=== PATIENT | female | born 1950 | race Caucasian/White ===

== ENCOUNTER 2023-07-12 07:13 | Emergency (ER) | payer MEDICARE, OTHER ==
[~2023-07-12] VITALS: Ht 167.6 cm; Wt 60.0 kg
[2023-07-12 07:22] VITALS: BP 123/64
[2023-07-12] MEDS: LIDOCAINE 1% (LOCAL ANESTH.) PF 5ml SDV ID ONE (08:05)
[2023-07-12] MEDS: ALBUTEROL SULF 2.5 MG/0.5ML(0.5%) NEB SOLN HHN ONE (08:16)
[2023-07-12] MEDS: IPRATROPIUM BROM 0.5 MG/2.5ML INH SOL HHN ONE (08:16)
[2023-07-12] MEDS: NEOMYCIN-BACITRACIN-POLYM UNITDOSE PKG TOP OINT TOP ONE (08:30)
[2023-07-12 08:36] VITALS: PULSE 78; RESP 14; O2SAT 94
== END 2023-07-12 10:26 | disposition home or self-care (01) ==
LOC: EDBD 07:13 → ER 07:13
DX: S01.112A Laceration without foreign body of left eyelid and periocular area, initial encounter (principal); J44.9 Chronic obstructive pulmonary disease, unspecified; Z88.6 Allergy status to analgesic agent; W18.09XA Striking against other object with subsequent fall, initial encounter; Y93.89 Activity, other specified; Y92.89 Other specified places as the place of occurrence of the external cause; Y99.8 Other external cause status
CPT/HCPCS: 12013; 94640; 99283; J7644

== ENCOUNTER 2024-01-15 01:09 | Inpatient (IN) | payer MEDICARE, OTHER ==
[~2024-01-15] VITALS: Ht 165.1 cm; Wt 50.2 kg
[~2024-01-15 01:09] MED LIST: ASCO500T11 PO; DOCU-94 PO; FOLI-119 PO; GABA-1251 PO
[2024-01-15 03:46] LABS: Basophils # (auto) 0.1 10 ^3/uL (0-0.2); Basophils % (auto) 0.9 % (0.0-2.0); Eosinophils # (auto) 0.1 10 ^3/uL (0-0.8); Eosinophils % (auto) 2.4 % (0.0-7.0); Hematocrit 37.6 % (36.0-46.0); Hemoglobin 12.4 g/dL (12.2-16.2); Lymphocytes # (auto) 0.6 10 ^3/uL (0.4-5.4); Mean Corpuscular Hemoglobin 31.2 pg (28.0-32.0); Mean Corpuscular Hgb Conc. 32.9 g/dL (32.0-36.0); Mean Corpuscular Volume 94.9 fL (80.0-100.0); Monocytes # (auto) 0.5 10 ^3/uL (0-1.3); Monocytes % (auto) 7.7 % (0.0-12.0); Neutrophils # (auto) 4.7 10 ^3/uL (1.6-8.6); Platelet Count (auto) 198 10^3/uL (140-450); Red Blood Cells 3.96 10^6/uL (4.0-5.20); White Blood Cell 5.9 10^3/uL (4.4-10.8)
[2024-01-15 03:55] LABS: Chloride 113 mmol/L (98-107); Potassium 4.2 mmol/L (3.5-5.1); Sodium 145 mmol/L (136-145)
[2024-01-15 03:56] LABS: Anion Gap 1 (5-15); Carbon Dioxide 31 mmol/L (20-31)
[2024-01-15 03:57] LABS: Calcium 9.6 mg/dL (8.7-10.4)
[2024-01-15 04:01] LABS: BUN/Creatinine Ratio 18.3 (10.0-20.0); Blood Urea Nitrogen 15 mg/dL (9-23); Glucose 120 mg/dL (74-106)
[2024-01-15 07:30] VITALS: PULSE 104; RESP 28; O2SAT 93
[2024-01-15] MEDS: methylPREDNISolone SOD SUCC 125 MG/2 ML VL IV ONE (08:17)
[2024-01-15] MEDS: ALBUTEROL SULF 2.5 MG/0.5ML(0.5%) NEB SOLN NEB ONE (08:18)
[2024-01-15] MEDS ORDERED: ONDANSETRON HCL 4 MG/2 ML VIAL IV PRN (09:00)
[2024-01-15] MEDS: MORPHINE SULFATE 4 MG/ML SYR/VIAL IV ONE (09:13)
[2024-01-15] MEDS: ONDANSETRON HCL 4 MG/2 ML VIAL IV ONE (09:13)
[2024-01-15 09:33] VITALS: BP 173/80; PULSE 106; RESP 22; TEMP 97.9; O2SAT 94
[2024-01-15] MEDS ORDERED: SERT-289 PO (09:56)
[2024-01-15] MEDS ORDERED: MEMA1TAB3 PO (09:56)
[2024-01-15] MEDS ORDERED: RISP1TAB63 PO (09:56)
[2024-01-15] MEDS ORDERED: THEO1TAB6 PO (09:56)
[2024-01-15] MEDS ORDERED: SERTRALINE HCL 50 MG TAB PO SCH (10:00)
[2024-01-15] MEDS: risperiDONE 1 MG TAB PO SCH (10:49)
[2024-01-15] MEDS: MEMANTINE HCL 5 MG TAB PO SCH (10:50)
[2024-01-15 11:39] VITALS: PULSE 81; RESP 18; O2SAT 96
[2024-01-15] MEDS: ALBUTEROL SULF 2.5 MG/0.5ML(0.5%) NEB SOLN NEB SCH (11:39)
[2024-01-15] MEDS: IPRATROPIUM BROM 0.5 MG/2.5ML INH SOL NEB SCH (11:39)
[2024-01-15 11:43] VITALS: PULSE 77; RESP 18; O2SAT 96
[2024-01-15] MEDS: SERTRALINE HCL 50 MG TAB PO SCH (11:47)
[2024-01-15] MEDS: LORazepam 2MG/ML-1ML VIAL IV ONE (11:47)
[2024-01-15] MEDS: MORPHINE SULFATE INJ 2 MG/ml SYRG IV PRN (12:01)
[2024-01-15 15:45] LABS: Urine Bacteria FEW /hpf (None Seen); Urine Blood Negative /uL (Negative); Urine Clarity Clear (Clear); Urine Color Yellow (Yellow); Urine Mucus FEW (None Seen); Urine Protein, UAD Negative (Negative); Urine Specific Gravity 1.022 (1.001-1.035); Urine Urobilinogen Normal (Negative); Urine WBC 1 /hpf (0 - 5); Urine pH 6.5 (5.0-9.0)
[2024-01-15 19:09] VITALS: PULSE 83; RESP 20; O2SAT 96
[2024-01-15 19:15] VITALS: PULSE 72; RESP 20; O2SAT 99
[2024-01-15] MEDS: HYDROcodone-ACET 5/325MG TAB PO PRN (19:28)
[2024-01-15] MEDS: LORazepam 2MG/ML-1ML VIAL IV PRN (22:38)
[2024-01-16] VITALS (16 sets, daily range): BP systolic 113–132; BP diastolic 55–73; PULSE 63–113; RESP 16–18; TEMP 97.4–98; O2SAT 94–100
[2024-01-16] MEDS: HALOPERIDOL LACTATE 5 MG/ML INJ VIAL IM ONE (04:18)
[2024-01-16 04:35] LABS: Basophils # (auto) 0.1 10 ^3/uL (0-0.2); Basophils % (auto) 0.8 % (0.0-2.0); Eosinophils # (auto) 0.1 10 ^3/uL (0-0.8); Eosinophils % (auto) 0.9 % (0.0-7.0); Hematocrit 36.5 % (36.0-46.0); Hemoglobin 12.1 g/dL (12.2-16.2); Lymphocytes # (auto) 1.3 10 ^3/uL (0.4-5.4); Lymphocytes % (auto) 19.4 % (10.0-50.0); Mean Corpuscular Hemoglobin 31.8 pg (28.0-32.0); Mean Corpuscular Hgb Conc. 33.2 g/dL (32.0-36.0); Mean Corpuscular Volume 95.6 fL (80.0-100.0); Monocytes # (auto) 0.8 10 ^3/uL (0-1.3); Monocytes % (auto) 12.2 % (0.0-12.0); Neutrophils # (auto) 4.4 10 ^3/uL (1.6-8.6); Neutrophils % (auto) 66.7 % (37.0-80.0); Platelet Count (auto) 190 10^3/uL (140-450); Red Blood Cells 3.82 10^6/uL (4.0-5.20); Red Cell Distribution Width 15.9 % (11.8-14.3); White Blood Cell 6.6 10^3/uL (4.4-10.8)
[2024-01-16 04:40] LABS: Chloride 109 mmol/L (98-107); Potassium 3.9 mmol/L (3.5-5.1); Sodium 143 mmol/L (136-145)
[2024-01-16 04:41] LABS: Anion Gap 3 (5-15); Calcium 9.6 mg/dL (8.7-10.4); Carbon Dioxide 31 mmol/L (20-31)
[2024-01-16 04:46] LABS: BUN/Creatinine Ratio 18.1 (10.0-20.0); Blood Urea Nitrogen 15 mg/dL (9-23); Glucose 88 mg/dL (74-106)
[2024-01-16] MEDS ORDERED: GABA-1308 PO (06:40)
[2024-01-16] MEDS: DOCUSATE SOD 100 MG CAP PO PRN (21:31)
[2024-01-17] VITALS (11 sets, daily range): BP systolic 108–155; BP diastolic 46–56; PULSE 54–69; RESP 16–18; TEMP 98.2–99.2; O2SAT 92–100
[2024-01-17 06:16] LABS: Basophils # (auto) 0.1 10 ^3/uL (0-0.2); Basophils % (auto) 0.9 % (0.0-2.0); Eosinophils # (auto) 0.2 10 ^3/uL (0-0.8); Eosinophils % (auto) 4.2 % (0.0-7.0); Hematocrit 35.1 % (36.0-46.0); Hemoglobin 11.8 g/dL (12.2-16.2); Lymphocytes % (auto) 17.2 % (10.0-50.0); Mean Corpuscular Hemoglobin 31.6 pg (28.0-32.0); Mean Corpuscular Hgb Conc. 33.7 g/dL (32.0-36.0); Mean Corpuscular Volume 93.8 fL (80.0-100.0); Monocytes # (auto) 0.5 10 ^3/uL (0-1.3); Monocytes % (auto) 8.5 % (0.0-12.0); Neutrophils # (auto) 3.9 10 ^3/uL (1.6-8.6); Neutrophils % (auto) 69.2 % (37.0-80.0); Platelet Count (auto) 179 10^3/uL (140-450); Red Blood Cells 3.74 10^6/uL (4.0-5.20); Red Cell Distribution Width 15.1 % (11.8-14.3); White Blood Cell 5.7 10^3/uL (4.4-10.8)
[2024-01-17 06:28] LABS: INR 1.03 (0.9-1.15); Partial Thromboplastin Time 25.8 SEC (24.5-34.5); Prothrombin Time 10.9 sec (9.3-11.8)
[2024-01-17 06:42] LABS: Alanine Aminotransferase 17 U/L (7-40); Albumin 3.5 g/dL (3.2-4.8); Alkaline Phosphatase 69 U/L (46-116); Anion Gap 4 (5-15); Aspartate Aminotransferase 21 U/L (13-40); BUN/Creatinine Ratio 23.5 (10.0-20.0); Bilirubin, Total 0.5 mg/dL (0.2-1.0); Blood Urea Nitrogen 16 mg/dL (9-23); Calcium 9.1 mg/dL (8.7-10.4); Carbon Dioxide 29 mmol/L (20-31); Chloride 109 mmol/L (98-107); Glucose 82 mg/dL (74-106); Potassium 3.8 mmol/L (3.5-5.1); Sodium 142 mmol/L (136-145); Total Protein 5.5 g/dL (5.7-8.2)
[2024-01-17 12:53] LABS: COVID19 ANTIGEN SOFIA FIA NEGATIVE (NEGATIVE)
== END 2024-01-17 17:14 | disposition home or self-care (01) | DRG 562 ==
LOC: ER 01:09 → EDBD 01:09 → OVERFLOW 08:50 → EAST 01-16 05:36
PROVIDERS: ADMIT Registered Nurse General Practice; ATTEND Internal Medicine
DX: S39.012A Strain of muscle, fascia and tendon of lower back, initial encounter (principal); J96.21 Acute and chronic respiratory failure with hypoxia; J44.1 Chronic obstructive pulmonary disease with (acute) exacerbation; G10 Huntington's disease; S00.93XA Contusion of unspecified part of head, initial encounter; F20.9 Schizophrenia, unspecified; F03.90 Unspecified dementia, unspecified severity, without behavioral disturbance, psychotic disturbance, mood disturbance, and anxiety; Z20.822 Contact with and (suspected) exposure to COVID-19; J43.9 Emphysema, unspecified; W07.XXXA Fall from chair, initial encounter; Z88.6 Allergy status to analgesic agent; Z88.1 Allergy status to other antibiotic agents; Z90.49 Acquired absence of other specified parts of digestive tract; Y93.89 Activity, other specified; Y92.89 Other specified places as the place of occurrence of the external cause; Y99.8 Other external cause status
CPT/HCPCS: 36415; 70450; 70486; 71045; 71250; 72128; 72131; 80048; 80053; 81001; 82962; 83605; 84484; 85025; 85610; 85730; 87081; 87426; 93005; 94640; G0378; J2405

== ENCOUNTER 2024-06-04 12:48 | Emergency (ER) | payer MEDICARE, OTHER ==
[~2024-06-04] VITALS: Ht 177.8 cm; Wt 60.3 kg
[~2024-06-04 12:48] MED LIST changes: +MEMA1TAB3 PO; +RISP1TAB63 PO; +SERT-289 PO; +THEO1TAB6 PO
--- NOTE | 2024-06-04 13:09 | ED.PDOC ---
History of Present Illness HPI Comments 74 year old female brought in by EMS presents to the ED with a chief complaint of fall onset today (06/04/24). Per EMS, patient is from [facility] he went to the bathroom when she slipped, fell forward and hit face on toilet bowl. Patient is currently experiencing neck and head pain, with a laceration noted on nose. Patient was placed on c-collar by EMS. PMHx anemia, COPD, Schizophrenia, Dementia. Denies LOC, chest pain, shortness of breath, nausea, vomiting, diarrhea, abdominal pain, dizziness, blurry vision. No other symptoms or modifying factors present at this time. Chief Complaint: Head Injury Time Seen by MD: 12:51 Primary Care Provider: unknown Reviewed Notes: Medications, Allergies Allergies: Coded Allergies: Celecoxib (Verified Allergy, Severe, 07/12/23) NSAIDs (Verified Allergy, Severe, 07/12/23) Home Meds Reported Medications Folic Acid (Folic Acid) 1 Mg Tab, 1 TAB PO DAILY for 30 Days, #30 01/16/24 Ascorbic Acid (VITAMIN C TABLET) 500 Mg Tb, 1 TAB PO BID for 31 Days, #62 01/16/24 Gabapentin (Gabapentin) 400 Mg Cap, 1 CAP PO TID for 31 Days, #93 01/16/24 Docusate Sodium (Colace) 100 Mg Cap, 1 CAP PO DAILY for 31 Days, #31 01/16/24 Theophylline (Theodur) 300 Mg Tb, 300 MG PO DAILY 01/15/24 Memantine Hydrochloride (Memantine HCl) 5 Mg Tab, 5 MG PO BID 01/15/24 Risperidone (Risperidone) 1 Mg Tab, 1 MG PO DAILY 01/15/24 Sertraline HCl (Sertraline HCl) 50 Mg Tab, 50 TAB PO DAILY 01/15/24 Information Source: Patient, Emergency Med Personnel Mode of Arrival: EMS Severity: Moderate Timing: Hours Duration: Since onset Prehospital treatment: [facility] Past Medical History PAST MEDICAL HISTORY: Anemia, COPD, Dementia, Schizophrenia Surgical History: Appendectomy, Tonsillectomy FINISH OPENER History: Denies all FINISH OPENER Hx Family History Family History: Unknown Social History Smoker: Non-Smoker Alcohol: Denies ETOH Use Drugs: Denies Drug Use Lives In: Care Home Constitutional: denies: chills, diaphoresis, fatigue, fever, malaise, sweats, weakness, others EENTM: denies: blurred vision, double vision, ear bleeding, ear discharge, ear drainage, ear pain, ear ringing, eye pain, eye redness, hearing loss, mouth pain, mouth swelling, nasal discharge, nose bleeding, nose congestion, nose pain, photophobia, tearing, throat pain, throat swelling, voice changes, others Respiratory: denies: cough, hemoptysis, orthopnea, SOB at rest, shortness of breath, SOB with excertion, stridor, wheezing, others Cardiovascular: denies: chest pain, dizzy spells, diaphoresis, Dyspnea on exertion, edema, irregular heart beat, left arm pain, lightheadedness, palpitations, PND, syncope, others Gastrointestinal: denies: abdomen distended, abdominal pain, blood streaked bowels, constipated, diarrhea, dysphagia, difficulty swallowing, hematemesis, melena, nausea, poor appetite, poor fluid intake, rectal bleeding, rectal pain, vomiting, others Genitourinary: denies: abnormal vagina bleeding, burning, dyspareunia, dysuria, flank pain, frequency, hematuria, incontinence, pain, , vagina discharge, urgency, others Neurological: reports: headache; denies: dizziness, fainting, left sided numbness, left sided weakness, numbness, paresthesia, pre-existing deficit, right sided numbness, right sided weakness, seizure, speech problems, tingling, tremors, weakness, others Musculoskeletal: reports: neck pain; denies: back pain, gout, joint pain, joint swelling, muscle pain, muscle stiffness, others Integumetry: reports: laceration (nose); denies: bruises, change in color, change in hair/nails, dryness, lesions, lumps, rash, wounds, others Allergic/Immunocompromised: denies: Difficulty Healing, Frequent Infections, Hives, Itching, others Hematologic/Lymphatic: denies: anemia, blood clots, easy bleeding, easy bruising, swollen glands, others Endocrine: denies: excessive hunger, excessive sweating, excessive thirst, excessive urination, flushing, intolerance to cold, intolerance to heat, unexplained weight gain, unexplained weight loss, others Psychiatric: denies: anxiety, bipolar disorder, depression, hopeless, panic disorder, schizophrenia, sleepless, suicidal, others All Other Systems: Reviewed and Negative Physical Exam General Appearance: No Apparent Distress, Normal HEENT: Normal ENT Inspection, Pharynx Normal, TMs Normal Neck: Full Range of Motion, Non-Tender, Normal, Normal Inspection Respiratory: Chest Non-Tender, Lungs Clear, No Accessory Muscle Use, No Respiratory Distress, Normal Breath Sounds Cardiovascular: No Edema, No JVD, No Murmur, No Gallop, Normal Peripheral Pulses, Regular Rate/Rhythm Breast Exam: Deferred Gastrointestinal: No Organomegaly, Non Tender, No Pulsatile Mass, Normal Bowel Sounds, Soft Genitalia: Deferred Pelvic: Deferred Rectal: Deferred Extremities: No calf tenderness, Normal capillary refill, Normal inspection, Normal range of motion, Non-tender, No pedal edema Musculoskeletal : Apperance: Normal Neurologic: Alert, bander operator II-XII nml as Tested, No Motor Deficits, Normal Affect, Normal Mood, No Sensory Deficits Cerebellar Function: Normal Reflexes: Normal Skin: Dry, Normal Color, Warm Lymphatic: No Adenopathy Was a procedure done? Was a procedure done?: Yes Sedation Sedation?: No Laceration Repair : Location Bridge of the nose Length 1 cm Anesthetic: Nothing Laceration Repair Prep: Saline Laceration Repair Wound Comple: epidermis/dermis repair Laceration Repair: Dermabond Informed consent obtained: No Risks, benefits, and alternati: No Differential Dx Considerations may include: Intracranial injury, laceration, cervical spine fracture X-Ray, Labs, Meds, VS Vital Signs Date Time Temp Pulse Resp B/P (MAP) Pulse Ox O2 Delivery O2 Flow Rate FiO2 06/04/24 14:44 97.9 80 17 142/80 (100) 99 97.9 06/04/24 14:44 Room Air* 0 21 06/04/24 13:00 98.3 67 16 140/70 (93) 98 Current Medications Medications (Trade) Dose Ordered Sig/Bk Route Start Time Stop Time Status Last Admin Diphtheria/ Tetanus/Acell Pertussis (Boostrix T-Dap) 0.5 ml ONCE ONCE IM 06/04/24 13:15 06/04/24 13:16 DC 06/04/24 13:57 [facility] [id number] [place] [id number] Ph: [phone] DIAGNOSTIC IMAGING Diagnostic Imaging Report : [id number] Signed PATIENT: VLAD MAX ACCT: [id number] UNIT: [id number] : 1950 LOC: ER ROOM / BED: / AGE / SEX: 74 / F ADM STATUS: REG ER SERVICE 1304 ORDERING PHYSICIAN: MAURICIO MELENDEZ MD PROCEDURE(s): CS2 - CERVICAL WITHOUT CONTRAST REASON: fall ORDER NUMBER(s): [id number], ACCESSION NUMBER(s): [id number] EXAM: CT CERVICAL WITHOUT CONTRAST INDICATION: fall EXAM DATE: 06/04/2024 01:30 PM COMPARISON: None TECHNIQUE: Multiple axial CT images of the cervical spine were obtained using bone algorithm. Sagittal and coronal reformatting was done. Bone and soft tissue windows were reviewed. Radiation Dose Information: CT Dose: CTDI volume is 53.6 mGy. Dose-length product is 948.0 mGy*cm FINDINGS: The cervical alignment is intact. The curvature is maintained. No acute cervical spine fracture is identified. The vertebral body heights are intact. No suspicio us osseous lesions are identified. Multilevel intervertebral disc space narrowing of the cervical spine. No significant spinal stenosis. Multilevel neural foraminal stenosis. Multilevel facet arthropathy. There is no prevertebral soft tissue swelling. The lung apices are clear. IMPRESSION: 1. No evidence of acute cervical spine fracture or traumatic malalignment. 2. Multilevel cervical spondylosis. All CT scans at this medical facility are performed using dose modulation techniques as appropriate to a performed exam including the following: Automated exposure control was utilized; adjustment of the MA and/or KV according to patient size; and use of iterative reconstruction technique. ATED BY: CAREY SUH MD DICTATED DATE/TIME: 06/04/241358 SIGNED BY: CAREY SUH MD SIGNED DATE/TIME: 06/04/24 135 CC: [place] [id number] Ph: [phone] DIAGNOSTIC IMAGING Diagnostic Imaging Report : [id number] Signed PATIENT: VLAD MAX ACCT: [id number] UNIT: [id number] : 1950 LOC: ER ROOM / BED: / AGE / SEX: 74 / F ADM STATUS: REG ER SERVICE 1304 ORDERING PHYSICIAN: MAURICIO MELENDEZ MD PROCEDURE(s): HWOCT - HEAD WITHOUT CONTRAST REASON: fall ORDER NUMBER(s): [id number], ACCESSION NUMBER(s): [id number] EXAM: CT HEAD WITHOUT CONTRAST HISTORY: fall COMPARISON: CT HEAD WITHOUT CONTRAST on DOS: 01/15/24 TECHNIQUE: Axial images of the head were obtained and reformatted in coronal and sagittal planes. All CT scans at this medical facility are performed using dose modulation techniques as appropriate to a performed exam including the following: Automated exposure control was utilized; adjustment of the MA and/or KV according to patient size; and use of iterative reconstruction technique. CT Dose: CTDI volume is 53 mGy. Dose-length product is 948 mGy*cm FINDINGS: There is no evidence of acute intracranial hemorrhage, mass, mass effect midline shift. There is no hydrocephalus or extra-axial fluid collection. There are chronic microvascular ischemic changes in the supratentorial white matter. Smith- white matter differentiation is maintained. The visualized paranasal sinuses and mastoid air cells are clear. The calvarium is intact. There is soft tissue swelling in the right anterior frontal scalp. IMPRESSION: 1. No acute intracranial process. 2. Soft tissue swelling in the right anterior frontal scalp. HS:Y ATED BY: ABEL GAVIN MD DICTATED DATE/TIME: 06/04/24 1350 SIGNED BY: ABEL GAVIN MD SIGNED DATE/TIME: 06/04/24 135 CC: Time of 1ST Reevaluation: 13:21 Reevaluation 1ST: Unchanged Patient Education/Counseling: Diagnosis, Treatment, Prognosis Family Education/Counseling: No Family Present Additional Information The following tests were ordered, and results were reviewed by me: CT HEAD WITHOUT CONTRAST, CT CERVICAL WITHOUT CONTRAST Additional Information was gathered from interviewing the following independent historians: EMS I reviewed and agreed with the following test results read by other providers: CT HEAD WITHOUT CONTRAST, CT CERVICAL WITHOUT CONTRAST I discussed treatment and results with medical personnel and: patient Departure 1 Departure Time of Disposition: 15:55 (Patient's workup is benign. Patient laceration. . We will discharge patient home with outpatient follow up) Impression: Primary Impression: Laceration of nose without complication Qualified Codes: S01.21XA - Laceration without foreign body of nose, initial encounter Additional Impression: Fall Qualified Codes: W19.XXXA - Unspecified fall, initial encounter Disposition: HOME / SELF CARE / HOMELESS Condition: Stable Additional Instructions: Your workup today was benign. You should follow up with your regular doctor within 1 week. You should stay well rested and well hydrated. If your symptoms worsen or you have any other concerns please return to the emergency room. Discharged With: Self Critical Care Note Critical Care Time?: No Stability Stability form required: No I personally scribed for MAURICIO MELENDEZ MD ([email or web address]) on 06/04/24 at 13:09. Electronically submitted by Katja Carlson ([email or web address]). I personally scribed for MAURICIO MELENDEZ MD ([email or web address]) on 06/04/24 at 13:11. Electronically submitted by Katja Carlson ([email or web address]). I personally scribed for MAURICIO MELENDEZ MD ([email or web address]) on 06/04/24 at 14:38. Elec tronically submitted by Katja Carlson ([email or web address]). MAURICIO MELENDEZ MD Jun 04, 2024 13:09
--- NOTE | 2024-06-04 13:53 | DVH ---
EXAM: CT HEAD WITHOUT CONTRAST HISTORY: fall COMPARISON: CT HEAD WITHOUT CONTRAST on DOS: 01/15/24 TECHNIQUE: Axial images of the head were obtained and reformatted in coronal and sagittal planes. All CT scans at this medical facility are performed using dose modulation techniques as appropriate t o a performed exam including the following: Automated exposure control was utilized; adjustment of th e MA and/or KV according to patient size; and use of iterative reconstruction technique. CT Dose: CTDI volume is 53 mGy. Dose-length product is 948 mGy*cm FINDINGS: There is no evidence of acute intracranial hemorrhage, mass, mass effect midline shift. There is no h ydrocephalus or extra-axial fluid collection. There are chronic microvascular ischemic changes in th e supratentorial white matter. Smith-white matter differentiation is maintained. The visualized paranasal sinuses and mastoid air cells are clear. The calvarium is intact. There is soft tissue swelling in the right anterior frontal scalp. IMPRESSION: 1. No acute intracranial process. 2. Soft tissue swelling in the right anterior frontal scalp. HS:Y
[2024-06-04] MEDS: TETANUS-DIPTH-ACEL PERTUSSIS 0.5ML SYR Tdap IM ONE (13:57)
--- NOTE | 2024-06-04 14:02 | DVH ---
EXAM: CT CERVICAL WITHOUT CONTRAST INDICATION: fall EXAM DATE: 06/04/2024 01:30 PM COMPARISON: None TECHNIQUE: Multiple axial CT images of the cervical spine were obtained using bone algorithm. Sagitta l and coronal reformatting was done. Bone and soft tissue windows were reviewed. Radiation Dose Information: CT Dose: CTDI volume is 53.6 mGy. Dose-length product is 948.0 mGy*cm FINDINGS: The cervical alignment is intact. The curvature is maintained. No acute cervical spine fracture is id entified. The vertebral body heights are intact. No suspicious osseous lesions are identified. Multilevel intervertebral disc space narrowing of the cervical spine. No significant spinal stenosis. Multilevel neural foraminal stenosis. Multilevel facet arthropathy. There is no prevertebral soft tissue swelling. The lung apices are clear. IMPRESSION: 1. No evidence of acute cervical spine fracture or traumatic malalignment. 2. Multilevel cervical spondylosis. All CT scans at this medical facility are performed using dose modulation techniques as appropriate t o a performed exam including the following: Automated exposure control was utilized; adjustment of th e MA and/or KV according to patient size; and use of iterative reconstruction technique.
[2024-06-04] MEDS: ACETAMINOPHEN 325 MG TAB PO ONE (18:11)
[2024-06-04 19:00] VITALS: BP 133/88; PULSE 61; RESP 20; TEMP 97.4; O2SAT 99
== END 2024-06-04 22:25 | disposition home or self-care (01) ==
LOC: ER 12:48 → EDBD 12:48 → ER 22:25
DX: S01.21XA Laceration without foreign body of nose, initial encounter (principal); J44.9 Chronic obstructive pulmonary disease, unspecified; Z86.2 Personal history of diseases of the blood and blood-forming organs and certain disorders involving the immune mechanism; Z90.49 Acquired absence of other specified parts of digestive tract; Z90.89 Acquired absence of other organs; Z79.899 Other long term (current) drug therapy; Z88.6 Allergy status to analgesic agent; W01.0XXA Fall on same level from slipping, tripping and stumbling without subsequent striking against object, initial encounter; Y93.89 Activity, other specified; Y92.89 Other specified places as the place of occurrence of the external cause; Y99.8 Other external cause status
CPT/HCPCS: 12011; 70450; 72125; 90471; 90715